=== PATIENT | female | born 1960 | race Caucasian/White ===

== ENCOUNTER 2019-12-26 11:58 | Outpatient (CLI) | payer BC, SELFPAY ==
[2019-12-26 12:47] LABS: Influenza Control Positive
== END 2019-12-26 11:59 | disposition home or self-care (01) ==
LOC: ANHLAB 11:59
PROVIDERS: PCP Internal Medicine; Visit Provider Physician Assistant
DX: R68.89 Other general symptoms and signs (principal)
CPT/HCPCS: 87804

== ENCOUNTER 2020-10-14 10:40 | Outpatient (CLI) | payer BC, SELFPAY ==
--- NOTE | ~2020-10-14 | XR_ITS ---
XR cervical spine 4-5V 10/14/2020 11:05 Indication: Cervicalgia Procedure: 4 views of the cervical spine Comparison: 03/02/2019 Findings: Normal cervical alignment. No prevertebral soft tissue swelling. Mild uncinate degenerative changes are present. Lung apices are normal. No fracture or traumatic malalignment. Impression: 1: Mild cervical spondylosis. Reviewed, dictated and finalized at location B. [employer] Impression: 1: Mild cervical spondylosis.
== END 2020-10-14 10:41 | disposition home or self-care (01) ==
LOC: ANHIMG 10:47
PROVIDERS: PCP Physician Assistant; Visit Provider Physician Assistant
DX: M47.892 Other spondylosis, cervical region (principal)
CPT/HCPCS: 72050

== ENCOUNTER 2021-03-13 16:10 | Outpatient (CLI) | payer BC, SELFPAY ==
--- NOTE | ~2021-03-13 | MM_ITS ---
EXAMINATION: MM screening [facility] BI w rad HISTORY: Screening mammogram TECHNIQUE: Craniocaudal and mediolateral oblique 3-D tomosynthesis images were obtained and synthetic 2-D images were generated. CAD analysis was submitted and interpreted. COMPARISON: 06/21/2019, 04/29/2018, 12/09/2016 bilateral digital screening mammogram examinations BREAST PARENCHYMAL COMPOSITION: There are scattered areas of fibroglandular density. FINDINGS: There is no evidence of suspicious mass, calcification, or architectural distortion to sugg est malignancy in either breast. There has been no suspicious interval change. IMPRESSION: 1. No mammographic evidence of malignancy. 2. Recommend routine screening mammography in one year. BI-RADS Category 1: Negative Reviewed, dictated and finalized at location A.
== END 2021-03-13 16:11 | disposition home or self-care (01) ==
PROVIDERS: PCP Internal Medicine; Visit Provider Student in an Organized Health Care Education/Training Program
DX: Z12.31 Encounter for screening mammogram for malignant neoplasm of breast (principal)
CPT/HCPCS: 77063; 77067

== ENCOUNTER → 2021-05-06 01:28 | Outpatient (CLI) | payer BC, SELFPAY ==
[2021-05-07 16:19] LABS: SARS-CoV-2 RNA PCR Negative
== END ==
PROVIDERS: PCP Physician Assistant; Visit Provider Internal Medicine Gastroenterology
DX: Z01.812 Encounter for preprocedural laboratory examination (principal); Z20.822 Contact with and (suspected) exposure to COVID-19
CPT/HCPCS: C9803; U0003; U0005

== ENCOUNTER 2021-05-09 01:54 | Day surgery (SDC) | payer BC, SELFPAY ==
[2021-04-23 15:12] VITALS: BMI 30.4
--- NOTE | 2021-05-09 08:26 | WPDANESEPPF ---
Anes - Initial Pre Proc Eval Procedure: Operation Date: 05/09/21 10:00 Proposed Procedures p Screening Colonoscopy - Gordon Paez MD Date/Time: 05/09/21 08:26 Surgeon: Gordon Paez MD Pre Op Diagnosis: hx of colon polyps, neoplasm screening Patient Data Age: 61 Gender: F Height: 1.55 m Weight: 73 kg Allergies Allergy/AdvReac Type Severity Reaction Status Date / Time No Known Allergies Allergy Verified 05/09/21 08:40 Home Medications Medication Instructions Recorded Confirmed Type naproxen 500 mg tablet 500 mg PO BID PRN 12/26/19 05/09/21 History citalopram 20 mg tablet 20 mg PO DAILY #90 tablet 11/03/20 05/09/21 Rx Synthroid 88 mcg tablet 88 mcg PO DAILY #90 tablet NS 01/29/21 05/09/21 Rx ergocalciferol (vitamin D2) 1,250 1,250 mcg PO WEEKLY #12 cap 01/29/21 05/09/21 Rx mcg (50,000 unit) capsule acyclovir 200 mg capsule 200 mg PO DAILY PRN #90 cap 04/15/21 05/09/21 Rx simvastatin 10 mg tablet 10 mg PO DAILY #90 tablet 04/22/21 05/09/21 Rx cyclobenzaprine 10 mg PO .qhs PRN 04/23/21 05/09/21 History gabapentin 300 mg PO BID PRN 04/23/21 05/09/21 History Patient hx anesthesia problems: none Family hx anesthesia problems: none PMFSH Past Medical History Medical History (Updated 05/09/21 @ 08:27 by Brock Courtney MD) Depression Elevated lipids Obesity (BMI 30.0-34.9) Thyroid disease Surgical History Surgical History History of appendectomy History of endometrial ablation History of tonsillectomy Hx of LASIK S/P laparoscopic hysterectomy Family History Family History Father Family history of liver disease Patient's father is Grandparent Family history of malignant neoplasm of breast Family history of malignant neoplasm of breast in first degree relative Mother Family history of malignant neoplasm of breast in first degree relative Patient's mother is Other Carcinoma of colon Family history of arthritis Family history of malignant neoplasm Family history of malignant neoplasm of male breast Hypertension Social History Social History Smoking packs per day: 3 Smoking cigarettes per day: 60.0 Years smoked: 17 Smoking pack-years: 51.00 Smoking status: Former smoker Second hand tobacco smoke exposure: No Smoking end date: 11/15/89 Alcohol intake: current Alcohol use details: rarely Substance use type: marijuana Living arrangements: alone Spiritual care concerns: No Anes - Eval Final PreProcedure Day of Procedure 05/09/21 08:26 Patient weight: obese Heart: regular rate and rhythm Lungs: clear to auscultation and normal air movement Airway: Mallampati scale class II Neurological: alert and oriented Last oral intake: >/= 8 hours ASA classification: II Emergent: no Anesthetic plan: proceed Anesthesia type and monitoring: general GIVS Informed Consent: The patient's anesthetic plan and its attendant risks and benefits were discussed with the patient/family/POA. Questions were solicited and answers provided to the satisfaction of the patient/family/POA.
[2021-05-09 08:42] VITALS: BP 105/65; PULSE 72; RESP 17; TEMP 36.6; O2SAT 97; BMI 30.8
[2021-05-09] MEDS: LACTATED RINGERS 1,000 ML 150 ML IV CONT (08:45)
--- NOTE | 2021-05-09 09:45 | PM.HPGS ---
History of Present Illness History of Present Illness Consent: Risks, benefits, and alternatives have been discussed and questions answered. Patient agrees to proceed with procedure. Chief complaint: hx of colon polyps, neoplasm screening Narrative: Keren James is a 61 year old female Here for colon cancer screening. She has had polyps removed in the past, 5 years ago Review of Systems Review of Systems: All systems reviewed & are unremarkable except as noted in HPI and below PMFSH Past Medical History Medical History Depression Elevated lipids Obesity (BMI 30.0-34.9) Thyroid disease Surgical History Surgical History History of appendectomy History of endometrial ablation History of tonsillectomy Hx of LASIK S/P laparoscopic hysterectomy Family History Family History Father Family history of liver disease Patient's father is Grandparent Family history of malignant neoplasm of breast Family history of malignant neoplasm of breast in first degree relative Mother Family history of malignant neoplasm of breast in first degree relative Patient's mother is Other Carcinoma of colon Family history of arthritis Family history of malignant neoplasm Family history of malignant neoplasm of male breast Hypertension Social History Social History Smoking packs per day: 3 Smoking cigarettes per day: 60.0 Years smoked: 17 Smoking pack-years: 51.00 Smoking status: Former smoker Second hand tobacco smoke exposure: No Smoking end date: 11/15/89 Alcohol intake: current Alcohol use details: rarely Substance use type: marijuana Living arrangements: alone Spiritual care concerns: No Meds Home Medications and Allergies Home Medications Medication Instructions Recorded Confirmed Type naproxen 500 mg tablet 500 mg PO BID PRN 12/26/19 05/09/21 History citalopram 20 mg tablet 20 mg PO DAILY #90 tablet 11/03/20 05/09/21 Rx Synthroid 88 mcg tablet 88 mcg PO DAILY #90 tablet NS 01/29/21 05/09/21 Rx ergocalciferol (vitamin D2) 1,250 1,250 mcg PO WEEKLY #12 cap 01/29/21 05/09/21 Rx mcg (50,000 unit) capsule acyclovir 200 mg capsule 200 mg PO DAILY PRN #90 cap 04/15/21 05/09/21 Rx simvastatin 10 mg tablet 10 mg PO DAILY #90 tablet 04/22/21 05/09/21 Rx cyclobenzaprine 10 mg PO .qhs PRN 04/23/21 05/09/21 History gabapentin 300 mg PO BID PRN 04/23/21 05/09/21 History Allergies Allergy/AdvReac Type Severity Reaction Status Date / Time No Known Allergies Allergy Verified 05/09/21 08:40 Vital Signs Vital Signs - 24 hr 05/09/21 08:42 Temperature 36.6 C Pulse Rate 72 Respiratory Rate 17 Blood Pressure 105/65 Pulse Oximetry 97 Exam Resp: Auscultation: clear to auscultation bilaterally Cardio: Rate: regular rate Rhythm: regular rhythm GI: GI Palp: Yes Soft to palpation and No Tenderness to palpation present (GI) Assessment and Plan Assessment and plan (1) Colon cancer screening: Code(s): Z12.11 - Encounter for screening for malignant neoplasm of colon Status: Acute Assessment and Plan: Colonoscopy with possible biopsy or polypectomy or cautery or injection of substances.
[2021-05-09 10:14] VITALS: BP 98/64; PULSE 71; RESP 16; O2SAT 96
[2021-05-09 10:24] VITALS: BP 111/73; PULSE 62; RESP 17; O2SAT 99
[2021-05-09 10:34] VITALS: BP 126/80; PULSE 58; RESP 21; O2SAT 99
== END 2021-05-09 10:49 | disposition home or self-care (01) ==
PROVIDERS: PCP Physician Assistant; Visit Provider Internal Medicine Gastroenterology
PROC: 0DJD8ZZ Inspection of Lower Intestinal Tract, Via Natural or Artificial Opening Endoscopic (ICD-10-PCS; CPT 45378; principal; 2021-05-09 10:00)
DX: Z12.11 Encounter for screening for malignant neoplasm of colon (principal); Z86.010 Personal history of colon polyps; K57.30 Diverticulosis of large intestine without perforation or abscess without bleeding; F32.9 Major depressive disorder, single episode, unspecified; Z87.891 Personal history of nicotine dependence; E07.9 Disorder of thyroid, unspecified; F12.90 Cannabis use, unspecified, uncomplicated; E66.9 Obesity, unspecified; Z68.30 Body mass index [BMI] 30.0-30.9, adult
CPT/HCPCS: 45378; J2704; J7120

== ENCOUNTER 2021-08-17 10:28 | Emergency (ER) | payer BC, SELFPAY ==
--- NOTE | ~2021-08-17 | XR_ITS ---
XR chest 2V 08/17/2021 10:57 Indication: Cough and shortness of breath Procedure: PA and lateral views of the chest Comparison: 09/29/2012 Findings: Bibasilar airspace disease, compatible with developing pneumonia. Heart size normal. No jerry ma, pleural effusion or pneumothorax. No acute osseous abnormality. Impression: 1: Bibasilar airspace disease, compatible with pneumonia. Reviewed, dictated and finalized at location A. Impression: 1: Bibasilar airspace disease, compatible with pneumonia.
--- NOTE | 2021-08-17 10:33 | ED.URI ---
HPI - URI/Sore Throat General Chief Complaint: Upper Respiratory Infection Stated Complaint: cough/chest congestion Time Seen by Provider: 08/17/21 10:33 Source: patient and RN notes reviewed History of Present Illness HPI Narrative: Patient is 61-year-old female who presents the urgent care with complaints of cough and chest congestion. Patient states that started on August 05 and she saw her doctor for irritation in the eyes. Patient states that for the last several days she has now had a harsh nonproductive cough. Patient denies of any fevers, nausea, vomiting. Denies of any known contact with Covid. States that she has had the Materna vaccine. No other acute complaints. No acute distress noted. Patient read the plan of care. Some parts of this dictation were generated by voice recognition software and may contain typographical and/or grammatical inaccuracies. Related Data Home Medications Medication Instructions Recorded Confirmed naproxen 500 mg tablet 500 mg PO BID PRN 12/26/19 08/08/21 cyclobenzaprine 10 mg PO .qhs PRN 04/23/21 08/08/21 Allergies Allergy/AdvReac Type Severity Reaction Status Date / Time No Known Allergies Allergy Verified 08/04/21 08:59 Review of Systems Review of Systems: CONSTITUTIONAL: Denies fever, chills, or sweats. EYES: Denies visual changes, redness, or discharge. ENT: Denies rhinorrhea, congestion, sore throat, or otalgia. CARDIOVASCULAR: Denies chest pain, palpitations, or edema. RESPIRATORY: Reports of harsh nonproductive cough without dyspnea GASTROINTESTINAL: Denies abdominal pain, nausea, vomiting, or diarrhea. GENITOURINARY: Denies dysuria or hematuria. SKIN: Denies rash or itching. MUSCULOSKELETAL: Denies back pain, joint pain, or myalgia. NEUROLOGIC: Denies headache, numbness, or weakness. All other systems reviewed are negative, except as documented in HPI. [facility] Past Medical History Medical History Depression Elevated lipids Obesity (BMI 30.0-34.9) Thyroid disease Surgical History Surgical History History of appendectomy History of endometrial ablation History of tonsillectomy Hx of LASIK S/P laparoscopic hysterectomy Family History Family History Father Family history of liver disease Patient's father is Grandparent Family history of malignant neoplasm of breast Family history of malignant neoplasm of breast in first degree relative Mother Family history of malignant neoplasm of breast in first degree relative Patient's mother is Other Carcinoma of colon Family history of arthritis Family history of malignant neoplasm Family history of malignant neoplasm of male breast Hypertension Social History Social History Smoking packs per day: 3 Smoking cigarettes per day: 60.0 Years smoked: 17 Smoking pack-years: 51.00 Smoking status: Former smoker Second hand tobacco smoke exposure: No Smoking end date: 11/15/89 Alcohol intake: current Alcohol use details: rarely Substance use type: marijuana Spiritual care concerns: No Comments At the time of my signature, I reviewed and agree with the nursing past medical, surgical, social, and family history. There is no relevant family history pertinent to the patient complaint. Exam Narrative: GENERAL: This is a well-nourished, well-developed patient, in no apparent distress. HEAD: normocephalic, atraumatic. EYES: PERRL. Sclera clear/white. Vision is grossly intact. EARS: External ears normal, auditory canals clear and without drainage, mild fluid noted behind bilateral TMs without otitis, TMs normal without perforation. Hearing grossly intact. NOSE: External nose normal with no obvious nasal discharge, nares without redness, clear rh
[2021-08-17 10:50] VITALS: BP 100/58; PULSE 84; RESP 20; TEMP 37.1; O2SAT 95
== END 2021-08-17 11:18 | disposition home or self-care (01) ==
PROVIDERS: Emergency Provider Nurse Practitioner Family; PCP Internal Medicine
DX: J18.9 Pneumonia, unspecified organism (principal); Z20.822 Contact with and (suspected) exposure to COVID-19; F32.A Depression, unspecified; E07.9 Disorder of thyroid, unspecified
CPT/HCPCS: 71046; 87426; 99213; C9803; G0463

== ENCOUNTER 2022-06-16 07:48 | Outpatient (CLI) | payer BC, SELFPAY ==
--- NOTE | ~2022-06-16 | DEXA_ITS ---
Bone Density Report Name: JUAN LANG Age: 62 Sex: Female Ethnicity: White Date of : 1960 Indication: postmenopausal; screening for osteoporosis; prior fracture; Referring Provider: TERE CALL Study: Bone densitometry was performed. Exam Date: June 16, 2022 Accession number: [id number] Bone Density: Region BMD T-score Z-score Classification AP Spine(L1-L4) 1.025 -0.2 1.4 Normal Femoral Neck (Left) 0.636 -1.9 -0.5 Osteopenia Total Hip (Left) 0.822 -1.0 0.1 Normal Femoral Neck (Right) 0.668 -1.6 -0.2 Osteopenia Total Hip (Right) 0.875 -0.5 0.5 Normal Total Hip Mean 0.849 -0.8 0.3 Normal World Health Organization criteria for BMD impression classify patients as: Normal (T-score at or above -1.0), Osteopenia (T-score between -1.0 and -2.5), or Osteoporosis (T-score at or below -2.5). 10-year Fracture Risk(1): Major Osteoporotic Fracture 15% Hip Fracture 1.8% Reported Risk Factors: [place] (), Neck BMD=0.636, BMI=31.6, previous fracture (1) FRAX(R) Version 3.08. Fracture probability calculated for an untreated patient. Fracture probability may be lower if the patient has received treatment. Previous Exams: Region Exam Age BMD T-score BMD Change BMD Change Date g/cm2 vs Baseline vs Previous AP Spine (L1-L4) 06/16/2022 62 1.025 -0.2 0.010 (1.0%) 0.010 (1.0%) 06/21/2019 59 1.014 -0.3 Total Hip(Left) 06/16/2022 62 0.822 -1.0 -0.066 (-7.4%) -0.066 (-7.4%) 06/21/2019 59 0.888 -0.4 Total Hip(Right) 06/16/2022 62 0.875 -0.5 -0.009 (-1.1%) -0.009 (-1.1%) 06/21/2019 59 0.884 -0.5 *Denotes significance at 95% confidence level, LSC for AP Spine = 0.022 g/cm2, LSC for Total Hip = 0.027 g/cm2 Clinical Information Provided by Patient: Has had a low trauma fracture Patient maximum height was 61 Menopause Age: 51 Drinks caffeinated beverages Onset of menses at age 12 Number of children 0 Impression: The patient has low bone mass, based on the Left Femoral Neck T-score. The patient has an estimated ten-year risk of hip fracture of 1.8% and an estimated ten-year risk of major fracture of 15%, based on the WHO FRAX algorithm. The patient has risk factors, including: previous fracture. The BMD for the Total Hip(Left) decreased, changing by -7.4% since the last DXA exam. Discussion: BONE DENSITY IS LOW AT ONE OR MORE SKELETAL SITES. This patient's lowest T-score is low at one or mor
--- NOTE | ~2022-06-16 | MM_ITS ---
EXAMINATION: MM screening [facility] BI w rad HISTORY: Screening TECHNIQUE: Craniocaudal and mediolateral oblique 3-D tomosynthesis images were obtained and synthetic 2-D images were generated. CAD analysis was submitted and interpreted. COMPARISON: Comparison to multiple prior studies sequentially, with oldest reviewed study dated 10/15. BREAST PARENCHYMAL COMPOSITION: There are scattered areas of fibroglandular density. FINDINGS: There is no evidence of suspicious mass, calcification, or architectural distortion to sugg est malignancy in either breast. There has been no suspicious interval change. IMPRESSION: 1. No mammographic evidence of malignancy. 2. Recommend routine screening mammography in one year. BI-RADS Category 1: Negative Reviewed, dictated and finalized at location A.
== END 2022-06-16 07:49 | disposition home or self-care (01) ==
PROVIDERS: PCP Internal Medicine; Visit Provider Student in an Organized Health Care Education/Training Program
DX: Z12.31 Encounter for screening mammogram for malignant neoplasm of breast (principal); Z78.0 Asymptomatic menopausal state; M85.852 Other specified disorders of bone density and structure, left thigh; M85.851 Other specified disorders of bone density and structure, right thigh
CPT/HCPCS: 77063; 77067; 77080

== ENCOUNTER 2023-05-17 13:59 | Outpatient (CLI) | payer OTHER, BC, SELFPAY ==
[2023-05-17 14:53] LABS: Appearance Urine Clear (Clear); Bilirubin Urine Negative (Negative); Blood Urine Negative (Negative); Color Urine Yellow (Yellow); Glucose Urine UA Negative (Negative); Ketones Urine Negative (Negative); Leukocyte Esterase Ur Negative LEU/UL (NEGATIVE); Nitrate Urine Negative (Negative); Protein Urine Negative (Negative); Specific Grav Ur 1.013 (1.001-1.035); Urobilinogen Urine 0.2 mg/dL (<2.0); pH Urine 6.5 (5.0-9.0)
[2023-05-17 15:03] LABS: Add Urine Microscopic? NO
== END 2023-05-17 14:00 | disposition home or self-care (01) ==
LOC: ANHLAB 14:00
PROVIDERS: PCP Physician Assistant; Visit Provider Physician Assistant
DX: R31.29 Other microscopic hematuria (principal)
CPT/HCPCS: 81003; 87086

== ENCOUNTER 2023-06-01 14:25 | Outpatient (CLI) | payer OTHER, BC, SELFPAY ==
--- NOTE | ~2023-06-01 | US_ITS ---
US thyroid INDICATION: Hypothyroidism. TECHNIQUE: Real-time sonographic images of the thyroid gland were obtained. COMPARISON: No prior studies for comparison. FINDINGS: The right thyroid lobe measures 3.4 x 1.6 x 0.8 cm. The left thyroid lobe measures 2.7 x 1 .6 x 1.1 cm. There is heterogeneous echotexture and echogenicity throughout the thyroid gland. No dis crete nodules identified. Normal vascular flow is present. IMPRESSION: 1. Atrophic heterogeneous thyroid gland without discrete mass. Reviewed, dictated and finalized at location A.
== END 2023-06-01 14:26 | disposition home or self-care (01) ==
PROVIDERS: PCP Physician Assistant; Visit Provider Registered Nurse
DX: E04.9 Nontoxic goiter, unspecified (principal)
CPT/HCPCS: 76536

== ENCOUNTER 2023-06-22 12:06 | Outpatient (CLI) | payer OTHER, BC, SELFPAY ==
--- NOTE | ~2023-06-22 | MMUS_ITS ---
EXAMINATION: MM diagnostic [facility] BI w rad, US breast RT limited HISTORY: Palpable lump in the upper outer quadrant of the right breast TECHNIQUE: Craniocaudal, mediolateral, and mediolateral oblique 3-D tomosynthesis images of the maria alejandra ts were performed and synthetic 2-D images were generated. CAD analysis was submitted and interpreted . High resolution limited right breast ultrasound was performed. COMPARISON: 06/16/2022, 03/13/2021, 06/21/2019 BREAST PARENCHYMAL COMPOSITION: There are scattered areas of fibroglandular density. FINDINGS: MAMMOGRAPHIC FINDINGS: No suspicious mass, calcification, or architectural distortion are identified in either breast to sug gest malignancy. There has been no suspicious interval change. A mammographic correlate is identified for the reported palpable abnormality of concern in the right breast. ULTRASOUND: There is a 5 mm x 3 mm cyst at the 10:00 location 9 cm from the nipple. IMPRESSION: 1. No suspicious mammographic or sonographic correlate is identified for the reported palpable abnorm ality of concern. Further evaluation at this time should be based on clinical assessment. Continued f ollow-up physical examination is recommended. 2. Recommend routine screening mammography in one year. BI-RADS Category 2: Benign finding(s). Reviewed, dictated and finalized at location A. IMPRESSION: 1. No suspicious mammographic or sonographic correlate is identified for the re ported palpable abnormality of concern. Further evaluation at this time should be based on clinical assessment. Continued follow-up physical examination is re commended. 2. Recommend routine screening mammography in one year. BI-RADS Category 2: Benign finding(s).
== END 2023-06-22 12:07 | disposition home or self-care (01) ==
PROVIDERS: PCP Physician Assistant; Visit Provider Registered Nurse
DX: N63.11 Unspecified lump in the right breast, upper outer quadrant (principal)
CPT/HCPCS: 76642; 77062; 77066; G0279

== ENCOUNTER 2023-07-12 09:26 | Outpatient (CLI) | payer OTHER, BC, SELFPAY ==
--- NOTE | ~2023-07-12 | XR_ITS ---
XR shoulder LT min 2V DATE: 07/12/2023 10:25 INDICATION: Left shoulder pain for 7 weeks. Grafting injury. TECHNIQUE: 4 views COMPARISON: None FINDINGS: No fracture or dislocation, periosteal reaction or bone destruction or abnormal soft tissue calcification. IMPRESSION: No significant abnormality Reviewed, dictated and finalized at location B. IMPRESSION: No significant abnormality
[2023-07-12 10:25] LABS: Appearance Urine Clear (Clear); Bacteria Urine None Seen /hpf; Bilirubin Urine 1+ (Negative); Color Urine Dark Yellow (Yellow); Glucose Urine UA Negative (Negative); Ketones Urine 1+ mg/dL (Negative); Leukocyte Esterase Ur Negative LEU/UL (NEGATIVE); Nitrate Urine Negative (Negative); Non Pathogenic Casts 0-2; Protein Urine 1+ mg/dL (Negative); Specific Grav Ur 1.032 (1.001-1.035); Squamous Epithelial Cell Urine Occasional /hpf (Few); WBC Urine 0-5 /hpf (0-3)
[2023-07-12 10:26] LABS: Basophils Absolute Auto 0.1 K/mm3 (0.0-0.1); Basophils Percent Auto 0.3 % (0.2-1.2); Eosinophils Absolute Auto 0.4 K/mm3 (0-0.3); Eosinophils Percent Auto 1.8 % (0-4.4); Hematocrit 41.9 % (37.0-47.0); Hemoglobin 14.3 g/dL (12.0-15.0); Immature Granulocyte Absolute 0.21 K/mm3 (0.00-0.031); Mean Corpuscular HGB Conc 34.1 g/dl (32-36); Mean Corpuscular Hemoglobin 31.8 pg (26-34); Mean Corpuscular Volume 93.1 fl (80-100); Mean Platelet Volume 10.1 fl (7.4-10.4); Monocytes Absolute Auto 1.6 K/mm3 (0.1-0.6); Monocytes Percent Auto 7.8 % (2.6-8.5); Neutrophils Absolute Auto 16.7 K/mm3 (1.3-6.7); Neutrophils Percent Auto 83.1 % (45.5-73.1); Platelet Count Result 280 k/mm3 (150-375); Red Cell Distribution Width 12.8 % (11.5-14.5); White Blood Count 20.1 K/mm3 (4.5-10.0)
[2023-07-12 10:33] LABS: Add Urine Microscopic? YES
== END 2023-07-12 09:27 | disposition home or self-care (01) ==
PROVIDERS: PCP Physician Assistant; Visit Provider Physician Assistant
DX: M25.512 Pain in left shoulder (principal); R50.9 Fever, unspecified
CPT/HCPCS: 36415; 73030; 81001; 85025; 87040; 87086

== ENCOUNTER 2023-07-18 09:54 | Emergency (ER) | payer BC, SELFPAY ==
[2023-07-18] VITALS (22 sets, daily range): BP systolic 96–142; BP diastolic 53–84; PULSE 95–122; RESP 17–33; TEMP 36.9–38.5; O2SAT 90–98
--- NOTE | ~2023-07-18 | XR_ITS ---
EXAMINATION: XR chest 1V portable INDICATION: Cough and fever TECHNIQUE: Portable AP chest at 1051 hours COMPARISON: 08/17/2021 FINDINGS: There are diffuse opacities throughout the left lung. No pleural effusion or pneumothorax. The cardiomediastinal silhouette is normal. IMPRESSION: 1. Diffuse lung disease on the left, likely pneumonia. Reviewed, dictated and finalized at location A.
--- NOTE | ~2023-07-18 | CT_ITS ---
EXAMINATION: CT abdomen pelvis w con INDICATION: Fever TECHNIQUE: Computed tomographic images of the abdomen and pelvis were obtained after the administrati on of 100 cc of Omnipaque 350 intravenous contrast. The dose-length product (DLP) was 695.10 mGy-cm. Automated exposure control and iterative reconstruction technique were employed. COMPARISON: None available FINDINGS: There is lingular pneumonia. A small left pleural effusion is present. The heart size is no rmal. There is a small sliding hiatal hernia. The liver, spleen, pancreas, gallbladder, and adrenal g lands are normal. The kidneys are unremarkable. No pathologically enlarged abdominal or pelvic lymph nodes are identified. No free intraperitoneal gas or evidence of bowel obstruction. There is trace pe lvic ascites. There is mild lumbar spondylosis. There is a tiny umbilical hernia containing fat. IMPRESSION: 1. Lingular pneumonia. Reviewed, dictated and finalized at location A. IMPRESSION: 1. Lingular pneumonia.
[2023-07-18 10:21] LABS: Basophils Absolute Auto 0.1 K/mm3 (0.0-0.1); Basophils Percent Auto 0.4 % (0.2-1.2); Eosinophils Absolute Auto 0.1 K/mm3 (0-0.3); Eosinophils Percent Auto 0.3 % (0-4.4); Hematocrit 38.5 % (37.0-47.0); Immature Granulocyte Percent A 2.9 % (0-0.5); Lymphocytes Percent Auto 2.1 % (18.3-44.2); Mean Corpuscular HGB Conc 33.8 g/dl (32-36); Mean Corpuscular Hemoglobin 31.2 pg (26-34); Mean Corpuscular Volume 92.3 fl (80-100); Mean Platelet Volume 8.9 fl (7.4-10.4); Monocytes Absolute Auto 0.6 K/mm3 (0.1-0.6); Monocytes Percent Auto 2.3 % (2.6-8.5); Neutrophils Absolute Auto 22.5 K/mm3 (1.3-6.7); Platelet Count Result 416 k/mm3 (150-375); Red Blood Count 4.17 M/mm3 (4.2-5.4); Red Cell Distribution Width 13.7 % (11.5-14.5); White Blood Count 24.4 K/mm3 (4.5-10.0)
[2023-07-18 10:31] LABS: Appearance Urine Clear (Clear); Bacteria Urine None Seen /hpf; Bilirubin Urine Negative (Negative); Blood Urine Trace (Negative); Color Urine Yellow (Yellow); Glucose Urine UA Negative (Negative); Ketones Urine 1+ mg/dL (Negative); Leukocyte Esterase Ur Negative LEU/UL (Negative); Nitrate Urine Negative (Negative); Non Pathogenic Casts 0-2; Protein Urine 1+ mg/dL (Negative); Specific Grav Ur 1.013 (1.001-1.035); Squamous Epithelial Cell Urine None seen /hpf (Few); WBC Urine 0-5 /hpf; pH Urine 7.5 (5.0-9.0)
[2023-07-18 10:32] LABS: Alanine Aminotransferase 40 U/L (6-35); Albumin Level 3.1 g/dL (3.5-5.1); Alkaline Phosphatase 353 U/L (38-126); Anion Gap 9 mmol/L (8-16); Aspartate Amino Transferase 43 U/L (14-36); Bilirubin,Total 0.6 mg/dL (0.2-1.3); Blood Urea Nitrogen 7 mg/dL (7-17); Calcium 8.3 mg/dL (8.4-10.2); Carbon Dioxide 30 mmol/L (22-30); Chloride 93 mmol/L (98-107); Estimated CRCL calculation 61 ml/min; Estimated Glomerular Filt Rate > 60; Glucose 129 mg/dL (65-110); Lipase 26 U/L (23-300); Potassium 3.5 mmol/L (3.4-5.0); Sodium 132 mmol/L (137-145)
[2023-07-18 10:32] LABS: Add Urine Microscopic? YES
[2023-07-18 10:55] LABS: Influenza A QL RT-PCR Negative (Negative); Influenza B QL RT-PCR Negative (Negative); SARS-CoV-2 RNA PCR Negative (Negative)
--- NOTE | 2023-07-18 11:11 | ED.GENADULT ---
HPI - General Adult General Chief complaint: Nausea/Vomiting/Diarrhea Stated complaint: fever, vomitting, headache Time Seen by Provider: 07/18/23 10:26 Source: patient Mode of arrival: ambulatory Limitations: no limitations History of Present Illness HPI narrative: This is a 63-year-old female who presents to the ED with chief complaint of fevers with nausea and vomiting for the past week. Patient reports that last night she started to develop a cough and has been continued to cough today. Somewhat productive. Reports that her temperature was as high as 101.3 ?F at home. She has been taking Tylenol which helps temporarily. She also endorses occasional loose stools and headache. Denies urinary symptoms, flank pain, abdominal pain, chest pain, shortness of breath. Denies hemoptysis. Per chart review patient was seen at her primary care who ordered urinalysis and blood cultures all of which were negative. She was not having a cough at that time. Related Data Home Medications Medication Instructions Recorded Confirmed naproxen 500 mg tablet 500 mg PO BID PRN Pain 12/26/19 07/13/23 cetirizine 10 mg tablet (Zyrtec) 10 mg PO DAILY PRN 02/10/23 07/13/23 Allergies Allergy/AdvReac Type Severity Reaction Status Date / Time No Known Allergies Allergy Verified 07/18/23 10:06 Review of Systems Review of Systems: All systems as dictated in HPI [facility] Past Medical History Medical History (Updated 07/18/23 @ 14:01 by Fly Darby PA-C) Depression Elevated lipids Obesity (BMI 30.0-34.9) Seasonal allergies Thyroid disease Surgical History Surgical History History of appendectomy History of endometrial ablation History of tonsillectomy Hx of LASIK S/P laparoscopic hysterectomy Family History Family History Father Family history of liver disease Patient's father is Grandparent Family history of malignant neoplasm of breast Family history of malignant neoplasm of breast in first degree relative Mother Family history of malignant neoplasm of breast in first degree relative Patient's mother is Other Carcinoma of colon Family history of arthritis Family history of malignant neoplasm Family history of malignant neoplasm of male breast Hypertension Social History Social History Smoking packs per day: 3 Smoking cigarettes per day: 60.0 Years smoked: 17 Smoking pack-years: 51.00 Smoking status: Former smoker Second hand tobacco smoke exposure: No Smoking end date: 11/15/89 Alcohol intake: current Alcohol use details: rarely Substance use type: marijuana Lack of Transportation: No Lack of Food: Never True Current Housing: I Have Housing Concerned About Future Housing: No Difficulty Paying Gas/Electric Bills: No Difficulty Paying for Meds: No Currently Unemployed: No Education: Trade/Vocational Certificate Difficulty w/ Childcare or Family Care: No Living arrangements: alone Spiritual care concerns: No Exam Narrative: GENERAL: Well-appearing, well-nourished, and in no acute distress. HEAD: Normocephalic, atraumatic. EYES: PERRLA and EOMI. ENT: Nares clear, no rhinorrhea or epistaxis. Mucous membranes moist. Oropharynx without tonsillar hypertrophy exudate or other lesions. NECK: Supple. No adenopathy or masses. CHEST: No respiratory distress. Clear to auscultation. No wheezes rales or rhonchi. O2 saturation 96% on room air. HEART: Regular rate and rhythm. No murmur heard. Normal peripheral pulses. ABDOMEN: Soft, nontender, nondistended, normal active bowel sounds. MSK: Normal range of motion. No edema. SKIN: Warm, dry, no rash. NEURO: Alert and oriented x3. No focal deficits. PSYCH: Normal mood and affect. Course Vital Signs Vital signs: Cecilia
[2023-07-18] MEDS: SODIUM CHLORIDE 0.9% IV 1,000 ML 999 ML IV CONT ×2 (11:56→13:54)
[2023-07-18] MEDS: AZITHROMYCIN 500 MG/NS 250 ML 500 MG/250 ML BAG 250 MG IVPB (14:18)
[2023-07-18] MEDS: ACETAMINOPHEN 325 MG TABLET 650 MG PO (14:41)
== END 2023-07-18 15:28 | disposition home or self-care (01) ==
PROVIDERS: Emergency Medicine; Emergency Provider Physician Assistant; PCP Physician Assistant
DX: J18.9 Pneumonia, unspecified organism (principal); Z20.822 Contact with and (suspected) exposure to COVID-19; E07.9 Disorder of thyroid, unspecified; E66.9 Obesity, unspecified; Z68.25 Body mass index [BMI] 25.0-25.9, adult; Z90.710 Acquired absence of both cervix and uterus; Z87.891 Personal history of nicotine dependence
CPT/HCPCS: 36415; 71045; 74177; 80053; 81001; 83690; 85025; 87040; 87636; 96361; 96365; 96367; 99284; A9270; J0456; J0696; J7030; Q9967

== ENCOUNTER 2023-08-19 10:21 | Outpatient (CLI) | payer BC, SELFPAY ==
[2023-08-19 10:45] LABS: Basophils Absolute Auto 0.1 K/mm3 (0.0-0.1); Basophils Percent Auto 0.8 % (0.2-1.2); Eosinophils Absolute Auto 0.7 K/mm3 (0-0.3); Hematocrit 41.3 % (37.0-47.0); Hemoglobin 13.9 g/dL (12.0-15.0); Immature Granulocyte Absolute 0.04 K/mm3 (0.00-0.031); Immature Granulocyte Percent A 0.4 % (0-0.5); Lymphocytes Absolute Auto 1.98 K/mm3 (0.9-3.2); Lymphocytes Percent Auto 22.1 % (18.3-44.2); Mean Corpuscular HGB Conc 33.7 g/dl (32-36); Mean Corpuscular Hemoglobin 31.7 pg (26-34); Mean Corpuscular Volume 94.1 fl (80-100); Mean Platelet Volume 10.1 fl (7.4-10.4); Monocytes Absolute Auto 0.6 K/mm3 (0.1-0.6); Monocytes Percent Auto 6.5 % (2.6-8.5); Neutrophils Absolute Auto 5.6 K/mm3 (1.3-6.7); Neutrophils Percent Auto 62.2 % (45.5-73.1); Platelet Count Result 247 k/mm3 (150-375); Red Blood Count 4.39 M/mm3 (4.2-5.4)
[2023-08-19 10:58] LABS: Alanine Aminotransferase 23 U/L (6-35); Albumin Level 3.8 g/dL (3.5-5.1); Alkaline Phosphatase 93 U/L (38-126); Anion Gap 6 mmol/L (8-16); Aspartate Amino Transferase 31 U/L (14-36); Bilirubin,Total 0.6 mg/dL (0.2-1.3); Blood Urea Nitrogen 11 mg/dL (7-17); Calcium 8.5 mg/dL (8.4-10.2); Carbon Dioxide 22 mmol/L (22-30); Chloride 107 mmol/L (98-107); Estimated Glomerular Filt Rate > 60; Glucose 90 mg/dL (65-110); Potassium 4.4 mmol/L (3.4-5.0); Sodium 135 mmol/L (137-145)
== END 2023-08-19 10:22 | disposition home or self-care (01) ==
LOC: ANHLAB 10:23
PROVIDERS: PCP Physician Assistant; Visit Provider Physician Assistant
DX: R74.8 Abnormal levels of other serum enzymes (principal); D72.829 Elevated white blood cell count, unspecified
CPT/HCPCS: 36415; 80053; 85025

== ENCOUNTER 2024-05-02 08:41 | Outpatient (CLI) | payer BC, SELFPAY ==
[2024-05-02 09:17] LABS: Basophils Absolute Auto 0.1 K/mm3 (0.0-0.1); Basophils Percent Auto 1.1 % (0.2-1.2); Eosinophils Absolute Auto 0.3 K/mm3 (0-0.3); Eosinophils Percent Auto 3.8 % (0-4.4); Hematocrit 44.5 % (37.0-47.0); Hemoglobin 15.4 g/dL (12.0-15.0); Immature Granulocyte Absolute 0.02 K/mm3 (0.00-0.031); Immature Granulocyte Percent A 0.3 % (0-0.5); Lymphocytes Absolute Auto 1.95 K/mm3 (0.9-3.2); Lymphocytes Percent Auto 26.4 % (18.3-44.2); Mean Corpuscular HGB Conc 34.6 g/dl (32-36); Mean Corpuscular Hemoglobin 31.7 pg (26-34); Mean Corpuscular Volume 91.6 fl (80-100); Mean Platelet Volume 10.2 fl (7.4-10.4); Monocytes Absolute Auto 0.6 K/mm3 (0.1-0.6); Monocytes Percent Auto 7.8 % (2.6-8.5); Neutrophils Absolute Auto 4.5 K/mm3 (1.3-6.7); Neutrophils Percent Auto 60.6 % (45.5-73.1); Platelet Count Result 273 k/mm3 (150-375); Red Blood Count 4.86 M/mm3 (4.2-5.4); Red Cell Distribution Width 13.1 % (11.5-14.5); White Blood Count 7.4 K/mm3 (4.5-10.0)
[2024-05-02 09:20] LABS: Appearance Urine Clear (Clear); Bilirubin Urine Negative (Negative); Blood Urine Negative (Negative); Color Urine Yellow (Yellow); Glucose Urine UA Negative (Negative); Ketones Urine Negative (Negative); Leukocyte Esterase Ur Negative LEU/UL (Negative); Nitrate Urine Negative (Negative); Protein Urine Negative (Negative); Specific Grav Ur 1.016 (1.001-1.035); Urobilinogen Urine 0.2 mg/dL (<2.0); pH Urine 6.5 (5.0-9.0)
[2024-05-02 09:22] LABS: Add Urine Microscopic? NO
[2024-05-02 09:30] LABS: Alanine Aminotransferase 28 U/L (6-35); Albumin Level 4.2 g/dL (3.5-5.1); Alkaline Phosphatase 86 U/L (38-126); Anion Gap 4 mmol/L (4-12); Aspartate Amino Transferase 29 U/L (14-36); Bilirubin,Total 0.6 mg/dL (0.2-1.3); Blood Urea Nitrogen 16 mg/dL (7-17); Carbon Dioxide 28 mmol/L (22-30); Chloride 104 mmol/L (98-107); Cholesterol 171 mg/dL (0-200); Estimated Glomerular Filt Rate > 60; Glucose 94 mg/dL (65-110); HDL Direct 56 mg/dL; Potassium 4.6 mmol/L (3.4-5.0); Sodium 136 mmol/L (137-145); Triglycerides 98 mg/dL (<150)
[2024-05-02 09:41] LABS: LDL Cholesterol Direct 102 mg/dL
[2024-05-02 09:51] LABS: Free T4 Free Thyroxine 0.99 ng/mL (0.78-2.19); Vitamin D 25 Hydroxy 49.7 ng/mL
== END 2024-05-02 08:42 | disposition home or self-care (01) ==
LOC: ANHLAB 08:43
PROVIDERS: Internal Medicine; PCP Physician Assistant; Visit Provider Physician Assistant
DX: Z00.00 Encounter for general adult medical examination without abnormal findings (principal); E03.9 Hypothyroidism, unspecified; E55.9 Vitamin D deficiency, unspecified; R31.9 Hematuria, unspecified
CPT/HCPCS: 36415; 80053; 80061; 81003; 82306; 84439; 84443; 85025

== ENCOUNTER 2025-01-08 14:58 | Emergency (ER) | payer BC, SELFPAY ==
--- NOTE | 2025-01-08 15:01 | ED.URI ---
HPI - URI/Sore Throat General Chief Complaint: Upper Respiratory Infection Stated Complaint: Flu Symptoms Time Seen by Provider: 01/08/25 15:00 Source: patient Mode of arrival: ambulatory Limitations: no limitations History of Present Illness HPI Narrative: Keren is a 64-year-old female patient presenting to the clinic today with complaints of possible flu-like symptoms. She reports her symptoms started last night. Has a fever, headache, nasal congestion, cough, body aches, nausea, vomiting, and diarrhea. States has had 2 episodes of vomiting and 2 episodes of diarrhea today. Had to call off work and is requesting a work note. MD elicited complaint: fever, cough, nasal congestion and other (Nausea, vomiting, diarrhea) Related Data Home Medications ?Medication ?Instructions ?Recorded ?Confirmed ?Last Taken ?Type naproxen 500 mg tablet 500 mg PO BID PRN Pain 12/26/19 01/08/25 Unknown History Allergies Allergy/AdvReac Type Severity Reaction Status Date / Time No Known Allergies Allergy Verified 01/08/25 15:04 Review of Systems Review of Systems: Pertinent positives per HPI. Patient denies any rash, visual changes, dizziness, shortness of breath, chest pain, palpitations, constipation, abdominal pain, or any urinary issues. [facility] Past Medical History Medical History Depression Elevated lipids Obesity (BMI 30.0-34.9) Seasonal allergies Thyroid disease Surgical History Surgical History History of appendectomy History of endometrial ablation History of tonsillectomy Hx of LASIK S/P laparoscopic hysterectomy Family History Family History Father Family history of liver disease Patient's father is Grandparent Family history of malignant neoplasm of breast Family history of malignant neoplasm of breast in first degree relative Mother Family history of malignant neoplasm of breast in first degree relative Patient's mother is Other Carcinoma of colon Family history of arthritis Family history of malignant neoplasm Family history of malignant neoplasm of male breast Hypertension Social History Social History Smoking packs per day: 3 Smoking cigarettes per day: 60.0 Years smoked: 17 Smoking pack-years: 51.00 Smoking status: Former smoker Second hand tobacco smoke exposure: No Smoking end date: 11/15/89 Alcohol intake: current Alcohol use details: rarely Substance use type: marijuana Lack of Transportation: No Lack of Food: Never True Current Housing: I Have Housing Concerned About Future Housing: No Difficulty Paying Gas/Electric Bills: No Difficulty Paying for Meds: No Currently Unemployed: No Education: Trade/Vocational Certificate Difficulty w/ Childcare or Family Care: No Living arrangements: alone Spiritual care concerns: No Comments At the time of my signature, I reviewed and agree with the nursing past medical, surgical, social, and family history. There is no relevant family history pertinent to the patient complaint. Exam Narrative: General: Well-developed, well nourished, in no apparent distress Head: Normocephalic, atraumatic Eyes: Pupils equally round and reactive to light bilaterally, EOM intact, sclera and conjunctive clear, no discharge, lids normal Ears: TMs intact and clear, ear canals clear, no drainage, grossly hearing normal. Nose: Nares patent, clear nasal discharge, no inflammation, no sinus tenderness. Mouth: Oral pharynx red without lesions or masses, good dentition, MMM. Neck: Supple, trachea midline, no enlargement of anterior or posterior cervical nodes, no thyroid masses or goiter palpable. Cardio: Regular rate and rhythm, s1 and s2 normal, no murmur appreciated. Resp: Clear to auscultation bilaterally, no rhonchi, rales, wheezing or rubs Course Course Emergency Course: Portions of this record may have been created with voice recognition software. Level of Care: Express Care Visit Vital Signs Vital signs: Vital Signs Temperature 36.8 C 01/08/25 15:10 Pulse Rate 88 01/08/25 15:10 Respiratory Rate 16 01/08/25 15:10 Blood Pressure 123/80 01/08/25 15:10 Pulse Oximetry 99 01/08/25 15:10 Temperature 36.8 C 01/08/25 15:10 Pulse Rate 88 01/08/25 15:10 Respiratory Rate 16 01/08/25 15:10 Blood Pressure 123/80 01/08/25 15:10 Pulse Oximetry 99 01/08/25 15:10 Vital signs reviewed MDM - URI/Sore Throat MDM Narrative Medical decision making narrative: At the time of visit patient is resting comfortably on the exam table. Patient appears to be nontoxic. Labs: Influenza, strep, and COVID testing was negative in the clinic today. We will send strep for culture. Plan: I suspect patient has URI/gastroenteritis/viral syndrome. Offer to send in patient [place] and she declined. Work note was given. Supportive measures were discussed with the patient and they voiced understanding discharge instructions and agrees to treatment plan. Return precautions reviewed Differential Diagnosis Differential diagnosis: Likely upper respiratory infection, otitis media, sinusitis, viral infection, bronchitis, influenza, pharyngitis and other (COVID) Lab Data Labs: Lab Results 01/08/25 01/08/25 Range/Units 15:21 15:22 POC Influenza A Ag Negative (Negative) POC Influenza B Ag Negative (Negative) POC SARS CoV-2 Ag Negative (Negative) POC Grp A Strep Screen Negative (Negative) Discharge Plan Discharge Clinical Impression: Upper respiratory infection with cough and congestion, Acute viral syndrome, Gastroenteritis Patient Disposition: Home, Self-Care Condition: Stable Instructions: Antibiotic Form, Viral Syndrome (ED), Cold Symptoms (ED), Gastroenteritis (ED) Additional Instructions: COVID, influenza, and strep test were all negative in the clinic today. We will send strep for culture if this comes back positive we will contact him place you on antibiotics at that time. May take DayQuil/NyQuil for cold/flu symptoms Cool-mist humidifier to bedside Increase fluids and stay well hydrated Tylenol/motrin for pain/fever Flonase and OTC antihistamines as directed Vicks vapor rub to open sinuses Sinus rinses for congestion Cepacol spray, cough drops, throat lozenges, warm tea with honey/lemon, gargle salt water to soothe throat BRAT diet for diarrhea Clear liquids x 24 hours then advance as tolerated for nausea/vomiting Go to the ED if you develop a worsening in your condition- high fever not controlled by Tylenol or Motrin, dehydration, weakness, lethargy, shortness of breath, or chest pain. Follow up with your PCP in 3-5 days if symptoms persist. Patient Language: Nigerien Prescriptions: No Action naproxen 500 mg tablet 500 mg PO BID PRN (Reason: Pain) ergocalciferol (vitamin D2) 1,250 mcg (50,000 unit) capsule 1,250 mcg PO WEEKLY Qty: 12 1RF acyclovir 200 mg capsule 200 mg PO DAILY PRN (Reason: outbreak) Qty: 90 2RF citalopram 20 mg tablet See Rx Instructions .ROUTE .COMPLEX Qty: 90 3RF Dose Instruction: TAKE 1 TABLET DAILY Rx Instructions: TAKE 1 TABLET DAILY levothyroxine 88 mcg tablet See Rx Instructions .ROUTE .COMPLEX Qty: 90 3RF Dose Instruction: TAKE 1 TABLET DAILY Rx Instructions: TAKE 1 TABLET DAILY cyclobenzaprine 10 mg tablet 10 mg PO .qhs PRN (Reason: muscle spasms) Qty: 90 0RF simvastatin 10 mg tablet 10 mg PO DAILY Qty: 90 1RF Follow-up/Referrals: PHYSICIAN,EMERGENCY DEPARTMENT CLINICIAN [Primary Care Provider] - Stand Alone Forms: Work/School Release IP Time of Disposition: 15:27 Quality NIHSS Nursing Documentation ED NIHSS nursing documentation: reviewed/agree
[2025-01-08 15:10] VITALS: BP 123/80; PULSE 88; RESP 16; TEMP 36.8; O2SAT 99
[2025-01-08 15:24] LABS: EDCOVIDSCREEN Negative (Negative)
[2025-01-08 15:25] LABS: EDINFLUASCREEN Negative (Negative); EDINFLUBSCREEN Negative (Negative); EDSTREPNEGPOS1 Negative (Negative)
== END 2025-01-08 15:30 | disposition home or self-care (01) ==
PROVIDERS: Emergency Provider Nurse Practitioner Family
DX: J06.9 Acute upper respiratory infection, unspecified (principal); R05.9 Cough, unspecified; B34.9 Viral infection, unspecified; K52.9 Noninfective gastroenteritis and colitis, unspecified; Z20.822 Contact with and (suspected) exposure to COVID-19; Z87.891 Personal history of nicotine dependence; E66.9 Obesity, unspecified; Z68.29 Body mass index [BMI] 29.0-29.9, adult; F32.A Depression, unspecified
CPT/HCPCS: 87081; 87426; 87804; 87880; 99213; G0463

== ENCOUNTER 2025-04-02 07:11 | Outpatient (CLI) | payer BC, SELFPAY ==
--- NOTE | ~2025-04-02 | MM_ITS ---
EXAMINATION: MM screening montse BI w rad HISTORY: Screening TECHNIQUE: Craniocaudal and mediolateral oblique 3-D tomosynthesis images were obtained and synthetic 2-D images were generated. CAD analysis was submitted and interpreted. COMPARISON: Comparison to multiple prior studies sequentially, with oldest reviewed study dated 12/09. BREAST PARENCHYMAL COMPOSITION: Not dense: There are scattered areas of fibroglandular density. FINDINGS: There is no evidence of suspicious mass, calcification, or architectural distortion to sugg est malignancy in either breast. There has been no suspicious interval change. IMPRESSION: 1. No mammographic evidence of malignancy. 2. Recommend routine screening mammography in one year. BI-RADS Category 1: Negative Reviewed, dictated and finalized at location B.
--- OUTSIDE RECORDS SUMMARY | 2025-04-02 07:18 | XMS_ITS | Data Portability ---
Author Organization [facility], Main Office Address [address] [place] [address] Care Team Providers Care Lead Janitor Name Role Phone ELDON JAIMES Primary Care Provider [phone] ELDON JAIMES Referring Provider [phone] Assessment Encounter Date Assessment Date Assessment LastModified by Organization Details LastModified Time 07/23/2023 07/23/2023 HPI: 63-year-old female came in today for evaluation of her left shoulder pain. She injured her left shoulder on May 24 of this year. She was on a trip and was rafting. They stopped so that they could climb up some rocks to jump into the water. When she was climbing up the rocks her foot slipped and she fell she reached up with her left arm and grabbed hold of the rock. Her entire body weight yanked on her shoulder. She had severe pain immediately when this happened. She has had continued pain since that time. She did try to get in with another orthopedist but was not able to do this because of the Dr. schedule did not have openings. She has been taking ibuprofen 400 mg twice a day since this started and has not had any improvement of her symptoms. She has pain with range of motion pain with use. Most the pain is across the lateral deltoid. She is having some difficulty sleeping due to pain as well. Patient states she has had no prior problems with this shoulder. She has worked at the [employer] for her adult life. 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 Physical exam: 63-year-old female alert pleasant. She has active elevation left shoulder to 140 external rotation 80 internal rotation is to T12. She has moderate pain with internal rotation. Subscap lift-off is intact. Negative abdominal compression test. She has good external rotation strength and mild weakness with abduction strength testing. She also has moderate pain with strength testing in external rotation as well as abduction. Mild tenderness over the anterior supraspinatus tendon insertion. Moderate pain primary impingement testing. No AC joint tenderness. 2+ radial pulse. No numbness or tingling left arm. Impression: 63-year-old female who had a traumatic injury to her left shoulder. She has been having pain in the shoulder since the injury which is now approximately 2 months ago. She has been taking ippq-sje-avwpuho anti-inflammator ies without improvement. She does have some mild weakness in the shoulder and may have a small rotator cuff tear. I discussed options with her including obtaining MRI scan for thorough evaluation and possible surgical intervention on the shoulder the other option is to start with physical therapy to see if we can improve her symptoms. At this point since she has been having symptoms for 2 months and had no improvement overall she wants to proceed with an MRI scan for definitive diagnosis of the shoulder. We will set the MRI scan up and see her back afterwards. The ibuprofen is not working well for her and I have recommended starting meloxicam at this point 15 mg daily to see if this will offer any better benefit. Not available 07/23/2023 16:11:32 08/30/2023 08/30/2023 Impression: Patient has a prominent subacromial bursitis on her left shoulder MRI scan and no significant tearing no evidence of occult fracture. She has had symptoms for over 3 months. Nonsteroidal anti-inflammator y medications have not given her significant relief. I have offered her a cortisone shot in the subacromial space. This was carried out after ChloraPrep prep through a posterior approach and she tolerated this very well and good initial pain relief with elevation. I discussed with her the risk of side effects including risk of infection with her. I have recommended avoiding multiple injections for this problem because of the possibility of might we can the rotator cuff tendon. I recommended that starting next week after she gets relief from the cortisone shot she start course of physical therapy. I have prescribed a Medrol Dosepak for her as well to assist with decreasing inflammation over the next few days minimize risk she will have a flare. I will see her back in 6 weeks assess progress. 30 minutes were spent in total care this patient more than half the time spent in elgu-[id number] care. [email or web address] Not available 08/30/2023 17:37:49 10/27/2023 10/27/2023 HPI: Patient returns. She is here for follow-up of her left shoulder. Last time I saw her 6 weeks ago she had injection in subacromial space due to significant bursitis seen on the MRI scan. She is also given a Medrol Dosepak and started on formal physical therapy. She states shoulder is doing much better. She still has some degree of soreness at the extremes of motion but otherwise she is significantly improved. Physical exam: 63-year-old female alert pleasant. She has active elevation to 150 with some mild discomfort, external rotation at 90 with mild discomfort. Internal rotation is still tight at L3 knee some jiwb-ro-tjutqxgs pain. She has excellent strength with external rotation as well as abduction in the left shoulder. No tenderness about the left shoulder on palpation. Impression: 63-year-old female has significant rotator cuff bursitis/ tendinitis fall. MRI scan showed tendon was in good shape without tearing. She is making significant improvement at this point. I recommended she continue work on stretching the shoulder out. She also may use it as comfort allows. She would like to get back to exercising I think this will be fine. If things change she will call otherwise plan on seeing her back as needed. Not available 10/27/2023 09:31:11 Plan of Treatment Reminders Order Date Submit Date Provider Last Modified By Organization Details Last Modified Time Details Appointments None recorded. Lab None recorded. Referral None recorded. Procedures injection/a spiration joint/bursa (PROC) - in office procedure, administere d by provider 2022 [email or web address] In-Office Order, Internal Use Only DO Not Attach Compendium DO Not Attach Compendium, Do Not Delete/merge, [id number] 17:30:21 Surgeries None recorded. Imaging None recorded. Medication Orders Kenalog 10 mg/mL suspension for injection 2022 023 [email or web address] [facility], [address], [place], [place], [id number], 09:04:32 ropivacaine (PF) 5 mg/mL (0.5 %) injection solution 2022 023 [email or web address] [facility], [address] , [place], [place], [id number], 3 09:04:49 Medrol (Juan Pablo) 4 mg tablets in a dose pack 2022 023 [email or web address] [facility], [address] , [place], [place], [id number], 3 09:04:40 meloxicam 15 mg tablet [address], [address] , [place], [place], [id number], 3 09:04:37 Patient TargetsNo targets recorded. Patient InstructionsNo instructions recorded. Reason for Referral None Reported. Results Created Date Observation Date Name Description Value Unit Range Abnormal Flag Note LastModifiedBy Organization Detail LastModifiedTime 07/15/2007/12/2023 XR, mara grossman, 2 or more view No observ ation record ed. [email or web address] Not Available 06/17 17:04:28 08/02/20 MRI, mara grossman, w/o contr ast [facility] [address] [address] Patien t Name: JUAN JOYCE ion #: [id number] Sex: F : 1959 4 1 Dictat ed By: Kenny Veliz Attend ing Physic noel: ABEL KING Orderi Physic noel: ABEL KING Exam Date: 2022 09:24 AM Exam Name: MRI SHOULD ER LT WO Admitt ing Diagno sis(es ): STUDY: MRI SHOULD ER CLINIC AL HISTOR Y: should er pain. TECHNI QUE: MR High Field Scanne r.T2 and T1 sequen tanja were done throug h left should er. CONTRA ST: none QUALIT Y OF STUDY: excell ent. COMPAR TERI: None FINDIN GS: FINDIN GS: Bone marrow and osseou s struct ures: The bone marrow signal intens ity is normal . Acromi oclavi cular joint: Modera te hypert ropic change s are noted in the acromi oclavi cular joint. The acromi o-clav icular joint capsul e is normal . Rotato r cuff: There is eviden ce of tendon itis with mildly increa sed T2 signal involv ing the distal fibers of the supras pinatu s tendon . The visual ized portio ns of the infras pinatu s, subsca pulari s and teres minor tendon s are within normal limits with regard to signal intens ity and morpho logy. No fluid is seen in the subacr ominal /subde ltoid bursa region . Gleno- lalita l joint and labrum : There is no eviden ce of glenoh umeral joint sublux ation. No osteoc hondra l defect s are seen. The anteri or labrum and the olive picker ior labrum are grossl y normal . The visual ized portio ns of the superi or, middle and inferi or glenoh umeral ligame nts are normal . Biceps tendon : The long head of the biceps tendon is of normal morpho logy, locati on and signal . IMPRES DARYL: 1. Mild tendin osis versus low grade partia l thickn ess tear of the distal fibers of the supras pinatu s. 2. Modera te arthro sis of the acromi oclavi cular joint Electr onical ly Signed by: Kenny Veliz at 2022 11:13: 16 AM Page 1 [email or web address] [facility] (Imaging) [address] [place], [address], 08/02/2023 12:16:54 Result Notes None recorded. Problems Name Problem SNOMED Code Status Onset Date Resolution Date Notes Provider Name and Address Organization Details Recorded Time Pain of left shoulder joint 7554813444811 9109 Active 2022 Monse hi [place] [facility] 3 15:09:36 Tendinitis of left shoulder 0833392435809 103 Active 2022 Elle Morgan CMA null, [employer] 15:03:08 Disorder of shoulder 089525999 Active 2022 ROGER Hernandez, [employer] 09:06:22 Problem Notes None recorded. Procedures Surgical History Date Name Laterality Status Provider Name and Address Organization Details Recorded Time Appendectomy completed [facility] 07/23/2023 15:02:[address] [facility] 07/23/2023 15:02:[address] [facility] 07/23/2023 15:02:31 Imaging Results Imaging Date Name Status LastModified by Organiz ation Details LastModified Time 07/12/2023 XR, shoulder, 2 or more view completed [email or web address] Information not available 07/15/2023 17:04:28 08/02/2023 MRI, shoulder, w/o contrast completed [facility] ([facility]) [address] [place], [address], 08/02/2023 12:16:54 Procedure Notes None recorded. Medical Equipment None Reported. Medications Name Sig Start Date Stop Date Status Note LastModified by Organization Details LastModified Time cyclobenzap rine 10 mg tablet active Not Available Not Available Not Available doxycycline hyclate 100 mg capsule 08/30 completed Not Available Not Available Not Available hydrocodone 5 mg-acetamin ophen 325 mg tablet 08/30 completed Not Available Not Available Not Available meloxicam 15 mg tablet Take 1 tablet every day by oral route. 10/27 completed Not Available Not Available Not Available simvastatin 10 mg tablet active Not Available Not Available Not Available citalopram 20 mg tablet active Not Available Not Available Not Available Kenalog 10 mg/mL suspension for injection in office procedure , administe red by provider 10/27 completed ND: 0003- 0494- 20 Not Available Not Available Not Available Synthroid 88 mcg tablet active Not Available Not Available Not Available gabapentin 300 mg capsule 08/30 completed Not Available Not Available Not Available codeine 10 mg-guaifene sin 100 mg/5 mL oral liquid 10/27 completed Not Available Not Available Not Available acyclovir 200 mg capsule active Not Available Not Available Not Available ergocalcife rol (vitamin D2) 1,250 mcg (50,000 unit) capsule active Not Available Not Available Not Available methylpredn isolone 4 mg tablets in a dose pack take the medrol dose pack PO as directed 10/27 completed Not Available Not Available Not Available albuterol sulfate HFA 90 mcg/actuati on aerosol inhaler 10/27 completed Not Available Not Available Not Available ondansetron 4 mg disintegrat ing tablet 10/27 completed Not Available Not Available Not Available amoxicillin 875 mg-potassiu m clavulanate 125 mg tablet 08/30 completed Not Available Not Available Not Available ropivacaine (PF) 5 mg/mL (0.5 %) injection solution in office procedure , administe red by provider 10/[address] [facility] [phone] Not Available Not Available Not Available Flowflex COVID-19 Antigen Home Test kit active Not Available Not Available Not Available Vitals Date Recorded Body height Body mass index (BMI) Body weight Provider Name and Address Organization Details Last Updated DateTime 07/23/2023 152.4 cm 31.6 kg/m2 30075.96 g Monse [facility] 07/23/2023 15:09:53 Date Recorded Body height Provider Name an d Address Organization Details Last Updated DateTime 08/30/2023 152.4 cm Jackeline Brendan [facility] 08/30/2023 16:58:41 Date Recorded Body height Provider Name an d Address Organization Details Last Updated DateTime 10/27/2023 152.4 cm Jackeline [facility] 10/27/2023 09:04:14 Social History None recorded. Functional Status None recorded. Mental Status None recorded. Family History Relationship Description Onset Age of this Age Resolved Age Notes LastModified by Organization Details LastModified Time Mother Family history of malignant neoplasm [email or web address] Not available 2022 15:01:57 Medical History No medical history recorded. Gynecological HistoryNo gynecological history recorded. Obstetrics History GPAL:G 0 P 0 0 0 0 Past Encounters Encounter ID Performer Location Encounter Start Date Encounter Closed Date Diagnosis/Indication Diagnosis SNOMED-CT Code Diagnosis ICD10 Code Diagnosis Note [id number] Abel Mendes MD [facility] [place] [address] [place] [address] 07/23/2023 14:34:51 07/23/2023 16:07:38 Pain of left shoulder joint [id number] 4816785 M25.359 [id number] Abel Mendes MD [facility] [place] [address] [place] [address] 08/30/2023 16:55:25 08/30/2023 17:56:11 Pain of left shoulder joint [id number] 3438025 M25.532 [id number] Abel Mendes MD [facility] [place] [address] [place] [address] 10/27/2023 09:00:48 10/27/2023 09:39:36 Disorder of shoulder 201978872 M75.52 Health Concerns Section Related Observation LastModified by Organization Detai ls LastModified Time None Recorded Concern Status LastModified by Organization Details LastModified Time None Recorded Advance Directives Directive None Recorded Payers Encounter Date Sequence Insurance Name Policy Number Policy Tompkins Covered Member ID Tompkins Member ID Guarantor Name 07/23/2023 1 [place] [id number] Juan Joyce [id number] Juan Isiah 08/30/2023 1 [place] [id number] Juan S Isiah [id number] Juan Isiah 10/27/2023 1 [place] [id number] Juan Joyce [id number] Juansuzanne Joyce Notes Date Note Type Note Provider Name and Address Organization Details Recorded Time 08/30/2023 text/html Patient is a 63-year-old female who injured her left shoulder while she was climbing a [place]acorta slipped on a rock and was falling and caught herself with her left hand which yanked her left shoulder causing pain and she has had problems ever since. This was a little over 3 months ago. She saw Librado Willoughby 1 month ago and she was noted to have significant difficulty elevating her arm past 90 because of severe pain. An MRI scan therefore was ordered. I reviewed the report and I have reviewed the images. The report has an error. It says there is no subdeltoid subacromial fluid but there is a large subdeltoid subacromial fluid collection and then as a primary abnormality. There is evidence of some tendinosis versus low-grade interstitial tearing at the supraspinatus tendon insertion which does not reach the surface of the tendon.MRI images were reviewed with patient. She has continued to have severe pain. In early July she developed a pneumonia and was very ill. Prior to that she had been using high doses of ibuprofen approximately 800 mg tablets per day getting only partial temporary relief. Over the last month she has used meloxicam on a daily basis approximately every other day. When she had the pneumonia she had prominent elevation in her liver enzymes particularly the alk-phos. AST and ALT were in the 40s. She had another CMP done on the 19 of August which showed AST ALT and alk phos have returned to normal. Her creatinine was 0.6. Abel Mendes MD [address], [place] [address], [place], [address], [facility] 08/30/2023 17:38:45 OBGyn Episode No OBEpisode recorded.
--- OUTSIDE RECORDS SUMMARY | 2025-04-02 07:18 | XMS_ITS | Clinical Summary ---
Author Organization [facility] Address [address] [place] [address] Care Team Providers Care Litigation Specialist Name Role Phone Unavailable Primary Care Provider Unavailabl e Allergies No known active allergies Medications HYDROcodone-claudio taminophen (NORCO) 5-325 mg tablet Take 1 Tablet by mouth every 8 hours as needed. Max Daily Amount: 3 Tablets 30 Tablet 07/12/2023 11:08 AM CDT 3 Active ondansetron (ZOFRAN ODT) 4 mg Tablet, Rapid Dissolve Dissolve 1 Tablet (4 mg) by mouth every 8 hours as needed for nausea and vomiting. 10 Tablet 07/18/2023 3:13 PM CDT 3 Active codeine-guaiFEN esin (ROBITUSSIN-AC) 10-100 mg/5 mL Liquid Take 10 mL by mouth every 6 hours as needed for cough. 473 mL 07/21/2023 4:43 PM CDT 3 Active meloxicam (MOBIC) 15 mg tablet Take 1 Tablet (15 mg) by mouth daily. 30 Tablet 07/29/2023 4:45 PM CDT 3 Active albuterol sulfate HFA 90 mcg/actuation aerosol inhaler Inhale 2 puffs by mouth every 4 to 6 hours as needed for shortness of breath or wheezing 8.5 Gram 08/02/2023 6:08 PM CDT 3 Active methylPREDNISol one (Medrol, Juan Pablo,) 4 mg Tablets, Dose Pack Take as directed on package. 21 Tablet 08/31/2023 2:23 PM CDT 3 Active citalopram (CeleXA) 20 mg tablet Take 1 tablet by mouth daily 90 Tablet 3 4 Active levothyroxine 88 mcg tablet Take one tablet by mouth daily 30 Tablet 3 4 Active Encounters Date Type Department Care Team Description 01/31/2025 External Device Data [facility] Provider, Abstract 01/20/2025 External Device Data [facility] Provider, Abstract 01/19/2025 External Device Data [facility] Provider, Abstract 01/17/2025 External Device Data [facility] Provider, Abstract 01/03/2025 External Device Data [facility] Provider, Abstract 01/03/2025 External Device Data [facility] Provider, Abstract from Last 3 Months Social History Tobacco Use Types Packs/Day Years Used Date Smoking Tobacco: Never Assessed Comments Unknown Sex and Gender Information Value Date Recorded Sex Assigned at Not on file Legal Sex Female 11:01 AM CDT Gender Identity Not on file Sexual Orientation Not on file Plan of Treatment Health Maintenance Due Date Last Done Comments DTAP/TDAP/TD VACCINES (1 - Tdap) 1979 BREAST CANCER SCREENING 2000 COLORECTAL SCREENING 2005 Colorectal Cancer Screening 2005 FIT-DNA Q 3 years 2005 FIT/FOBT Q 1 year 2005 Flex Sig/CT Colonography Q 5 years 2005 PNEUMOCOCCAL VACCINE 50+ YEARS (1 of 1 - PCV) 03/24/20 10 ZOSTER VACCINE (1 of 2) 2010 INFLUENZA VACCINE (#1) 2024 OSTEOPOROSIS SCREENING 2025 RSV VACCINE (60+ or ) (1 - 1-dose 75+ series) 2035 Insurance [employer]
== END 2025-04-02 07:12 | disposition home or self-care (01) ==
LOC: ANHIMG 07:14
PROVIDERS: PCP Internal Medicine; Visit Provider Nurse Practitioner Family
DX: Z12.31 Encounter for screening mammogram for malignant neoplasm of breast (principal)
CPT/HCPCS: 36415; 77063; 77067; 80053; 80061; 82306; 84439; 84443; 85025

== ENCOUNTER 2025-04-02 07:58 | Outpatient (CLI) | payer BC, SELFPAY ==
--- OUTSIDE RECORDS SUMMARY | 2025-04-02 08:03 | XMS_ITS | Clinical Summary ---
Author Organization [facility] Address [address] [place] [address] Care Team Providers Care Needle Leader Name Role Phone Unavailable Primary Care Provider [...]
[2025-04-02 09:07] LABS: Basophils Absolute Auto 0.1 K/mm3 (0.0-0.1); Basophils Percent Auto 0.9 % (0.2-1.2); Eosinophils Absolute Auto 0.3 K/mm3 (0-0.3); Eosinophils Percent Auto 4.9 % (0-4.4); Hematocrit 43.9 % (37.0-47.0); Hemoglobin 14.6 g/dL (12.0-15.0); Immature Granulocyte Absolute 0.03 K/mm3 (0.00-0.031); Immature Granulocyte Percent A 0.4 % (0-0.5); Lymphocytes Absolute Auto 1.82 K/mm3 (0.9-3.2); Mean Corpuscular HGB Conc 33.3 g/dl (32-36); Mean Corpuscular Hemoglobin 31.2 pg (26-34); Mean Corpuscular Volume 93.8 fl (80-100); Mean Platelet Volume 10.4 fl (7.4-10.4); Monocytes Absolute Auto 0.6 K/mm3 (0.1-0.6); Monocytes Percent Auto 8.6 % (2.6-8.5); Neutrophils Absolute Auto 4.1 K/mm3 (1.3-6.7); Neutrophils Percent Auto 59.2 % (45.5-73.1); Platelet Count Result 262 k/mm3 (150-375); Red Blood Count 4.68 M/mm3 (4.2-5.4); Red Cell Distribution Width 13.2 % (11.5-14.5)
[2025-04-02 09:21] LABS: Alanine Aminotransferase 28 U/L (6-35); Alkaline Phosphatase 85 U/L (38-126); Anion Gap 5 mmol/L (4-12); Aspartate Amino Transferase 36 U/L (14-36); Bilirubin,Total 0.3 mg/dL (0.2-1.3); Blood Urea Nitrogen 11 mg/dL (7-17); Calcium 8.6 mg/dL (8.4-10.2); Carbon Dioxide 25 mmol/L (22-30); Chloride 105 mmol/L (98-107); Cholesterol 175 mg/dL (0-200); Estimated Glomerular Filt Rate > 60; Glucose 102 mg/dL (65-110); HDL Direct 59 mg/dL; Potassium 4.5 mmol/L (3.4-5.0); Sodium 135 mmol/L (137-145); Triglycerides 57 mg/dL (<150)
[2025-04-02 09:33] LABS: LDL Cholesterol Direct 87 mg/dL
[2025-04-02 09:38] LABS: Free T4 Free Thyroxine 1.03 ng/dL (0.78-2.19); Vitamin D 25 Hydroxy 28.1 ng/mL
== END 2025-04-02 07:59 | disposition home or self-care (01) ==
LOC: ANHLAB 08:00
PROVIDERS: PCP Internal Medicine; Visit Provider Internal Medicine
DX: Z51.81 Encounter for therapeutic drug level monitoring (principal); E03.9 Hypothyroidism, unspecified; D72.829 Elevated white blood cell count, unspecified; E66.9 Obesity, unspecified; E78.00 Pure hypercholesterolemia, unspecified; E78.5 Hyperlipidemia, unspecified
CPT/HCPCS: 36415; 80053; 80061; 82306; 84439; 84443; 85025

== ENCOUNTER 2025-06-18 07:55 | Outpatient (CLI) | payer BC, SELFPAY ==
--- NOTE | ~2025-06-18 | DEXA_ITS ---
Bone Density Report Name: JUAN SNYDER Age: 65 Sex: Female Ethnicity: White Date of : 1960 Indication: postmenopausal; screening for osteoporosis; hysterectomy; Referring Provider: FEDERICA KING Study: Bone densitometry was performed. Exam Date: June 18, 2025 Accession number: [id number] Bone Density: Region BMD T-score Z-score Classification AP Spine(L1-L4) 1.009 -0.3 1.4 Normal Femoral Neck (Left) 0.607 -2.2 -0.7 Osteopenia Total Hip (Left) 0.902 -0.3 0.9 Normal Femoral Neck (Right) 0.646 -1.8 -0.3 Osteopenia Total Hip (Right) 0.892 -0.4 0.8 Normal Total Hip Mean 0.897 -0.4 0.9 Normal World Health Organization criteria for BMD impression classify patients as: Normal (T-score at or above -1.0), Osteopenia (T-score between -1.0 and -2.5), or Osteoporosis (T-score at or below -2.5). 10-year Fracture Risk(1): Major Osteoporotic Fracture 11% Hip Fracture 1.7% Reported Risk Factors: [place] (), Neck BMD=0.607, BMI=30.3 (1) FRAX(R) Version 3.08. Fracture probability calculated for an untreated patient. Fracture probability may be lower if the patient has received treatment. Previous Exams: Region Exam Age BMD T-score BMD Change BMD Change Date g/cm2 vs Baseline vs Previous AP Spine (L1-L4) 06/18/2025 65 1.009 -0.3 -0.005 (-0.5%) -0.015 (-1.5%) 06/16/2022 62 1.025 -0.2 0.010 (1.0%) 0.010 (1.0%) 06/21/2019 59 1.014 -0.3 Total Hip(Left) 06/18/2025 65 0.902 -0.3 0.014 (1.6%) 0.080 (9.7%)* 06/16/2022 62 0.822 -1.0 -0.066 (-7.4%) -0.066 (-7.4%) 06/21/2019 59 0.888 -0.4 Total Hip(Right) 06/18/2025 65 0.892 -0.4 0.007 (0.8%) 0.017 (1.9%) 06/16/2022 62 0.875 -0.5 -0.009 (-1.1%) -0.009 (-1.1%) 06/21/2019 59 0.884 -0.5 *Denotes significance at 95% confidence level, LSC for AP Spine = 0.022 g/cm2, LSC for Total Hip = 0.027 g/cm2 Clinical Information Provided by Patient: Has used the following medications: Vitamin D Has the following medical conditions: Hysterectomy Patient maximum height was 61 Menopause Age: 51 Drinks caffeinated beverages Onset of menses at age 11 Number of children 0 Impression: The patient has low bone mass, based on the Left Femoral Neck T-score. The patient has an estimated ten-year risk of hip fracture of 1.7% and an estimated ten-year risk of major fracture of 11%, based on the WHO FRAX algorithm. No significant bone loss was observed. Discussion: BONE DENSITY IS LOW AT ONE OR MORE SKELETAL SITES. This patient's lowest T-score is low at one or more skeletal sites. It meets the World Health Organization's (WHO) criteria for ?low bone mass? (T-score between -1.0 and -2.5). The patient's 10-year risk of fracture as calculated by FRAX is less than the threshold where pharmacological therapy is recommended by the National Osteoporosis Foundation (NOF). However, all treatment decisions require clinical judgment and consideration of individual patient factors, including patient preferences, comorbidities, previous drug use, risk factors not captured in the FRAX model (e.g., frailty, falls, vitamin D deficiency, increased bone turnover, interval significant decline in bone density) and possible under or overestimation of fracture risk by FRAX. The patient should follow a healthful lifestyle (good nutrition with adequate calcium and vitamin D, and appropriate weight-bearing exercise). Follow-Up: Consider repeating this study in 2 to 3 years to reassess this patient's status, or sooner if there is some new clinical indication. Reported by: CHRIS on 06/18/2025 8:36:00 AM. Reviewed, dictated and finalized at location A.
--- OUTSIDE RECORDS SUMMARY | 2025-06-18 08:01 | XMS_ITS | Clinical Summary ---
Author Organization [facility] Address [address] [place] [address] Care Team Providers Care Loom Checker Name Role Phone Unavailable Primary Care Provider [...] Encounters Date Type Department Care Team Description 05/30/2025 External Device Data [facility] Provider, Abstract 05/30/2025 External Device Data [facility] Provider, Abstract 05/30/2025 External Device Data [facility] Provider, Abstract 05/08/2025 External Device Data [facility] Provider, Abstract 04/10/2025 External Device Data [facility] Provider, Abstract 04/04/2025 External Device Data [facility] Provider, Abstract 04/03/2025 External Device Data [facility] Provider, Abstract [...] 10 ZOSTER VACCINE (1 of 2) 2010 OSTEOPOROSIS SCREENING 2025 INFLUENZA VACCINE (#1) 2025 RSV VACCINE (60+ or ) (1 - 1-dose 75+ series) 2035 Insurance RX [employer]
== END 2025-06-18 07:56 | disposition home or self-care (01) ==
LOC: ANHIMG 07:59
PROVIDERS: PCP Internal Medicine; Visit Provider Nurse Practitioner Family
DX: M85.852 Other specified disorders of bone density and structure, left thigh (principal); M85.851 Other specified disorders of bone density and structure, right thigh; Z78.0 Asymptomatic menopausal state
CPT/HCPCS: 77080